=== PATIENT | female | born 1995 | race Hispanic/Latino ===

== ENCOUNTER 2018-12-20 13:35 | Outpatient (CLI) | payer OTHER ==
[~2018-12-20 13:35] MED LIST: Iopamidol 370 76% 100 ML VIAL ONE
--- NOTE | 2018-12-20 14:56 | CT ---
EXAM: CT Pelvis W Con PROVIDED CLINICAL HISTORY: Right lower extremity enlargement/leg swelling for many years. COMPARISON: None FINDINGS: Imaging was obtained from the level of the L4 vertebral body to the proximal diaphysis of the femurs. The most distal infrarenal abdominal aorta as well as the iliac arteries and bilateral common femoral arteries are patent. The visualized portions of the IVC as well as each common iliac vein and internal and external iliac veins are patent. Common femoral veins are patent and symmetric in appear ance bilaterally. No filling defects are seen within the iliac veins on this exam. No external compression of the veins is appreciated on this exam. The urinary bladder, uterus, and adnexal structures have a normal CT appearance. There is no evidence of a pelvic mass or lymphadenopathy. No free fluid or fluid collection is identi fied. No enlarged lymph nodes or mass is seen in either inguinal region. There is no subcutaneous soft tiss ue swelling involving the imaged portion of the proximal thighs bilaterally. IMPRESSION: Normal CT scan of the pelvis. The iliac veins are patent. No pelvic mass or lymphadenopathy is seen. No edema is seen in the subcutaneous soft tissues of the imaged proximal right lower extremity.
== END 2018-12-20 13:36 | disposition home or self-care (01) ==
LOC: CT 13:35
PROVIDERS: ATTEND Internal Medicine Cardiovascular Disease
DX: M79.89 Other specified soft tissue disorders (principal)
CPT/HCPCS: 72193; Q9967

== ENCOUNTER 2019-04-11 11:59 | Emergency (ER) | payer BC ==
[2019-04-11 12:45] LABS: #Basophils 0.1 thou/uL (0.0-0.2); #Eosinphils 0.2 thou/uL (0.0-0.7); #Lymphocytes 3.3 thou/uL (1.20-3.40); #Monocytes 0.6 thou/uL (0.11-0.59); #Neutrophils 4.3 thou/uL (1.40-6.50); %Basophils 1.2 % (0.0-1.0); %Eosinophils 2.6 % (0.0-10.0); %Lymphocytes 38.7 % (21.0-51.0); %Monocytes 6.7 % (0.0-10.0); %Neutrophils 50.7 % (42.0-75.0); Hemoglobin 13.2 g/dL (12.0-16.0); Mean Corpuscular HGB CONC 33.3 g/dL (32.0-36.0); Mean Corpuscular Hemoglobin 30.1 pg (27.0-31.0); Mean Corpuscular Volume 90.4 fL (78.0-98.0); Mean Platelet Volume 10.3 fL (7.4-10.4); Platelet Count 189 thou/uL (130-400); RBC Distribution Width 12.6 % (11.5-14.5); Red Blood Cell (RBC) Count 4.38 mill/uL (4.20-5.40); White Blood Cell (WBC) Count 8.5 thou/uL (4.8-10.8)
[2019-04-11 12:55] LABS: BHCG - Serum Negative (NEGATIVE); Pregs Control Background? CLEAR/WHITE (CLR/WHITE); Pregs Control Bar Appear? YES (CONTROL BAR)
[2019-04-11 13:07] LABS: ALT (SGPT) 11 U/L (8-55); AST (SGOT) 14 U/L (5-34); Albumin 4.4 g/dL (3.5-5.0); Alkaline Phosphatase 57 U/L (40-110); Anion Gap 12 mmol/L (10-20); BUN (Urea Nitrogen) 9 mg/dL (7.0-18.7); Bilirubin, Total 0.7 mg/dL (0.2-1.2); Calc. Creatinine Clearance 0 mL/min (70-130); Calcium 9.7 mg/dL (7.8-10.44); Carbon Dioxide 24 mmol/L (22-29); Chloride 108 mmol/L (98-107); Estimated GFR-MDRD Greater than 90; Globulin 3.4 g/dL (2.4-3.5); Glucose 94 mg/dL (70-105); Potassium 3.9 mmol/L (3.5-5.1); Protein, Total 7.8 g/dL (6.0-8.3); Sodium 140 mmol/L (136-145)
--- NOTE | 2019-04-11 13:08 | CT ---
CT HEAD WITHOUT IV CONTRAST COMPARISON: None HISTORY: Unresponsive. Short bursts of seizure like activity. TECHNIQUE: Axial CT imaging at 5 mm intervals from vertex through skull base without contrast FINDINGS: There is no evidence of an acute infarction, hemorrhage, mass effect, or midline shift. The ventricul ar system is normal in size, shape, and position. There is scattered mucosal thickening throughout the ethmoidal air cells with mucosal thickening in t he left sphenoid sinus. The mastoid air cells are clear. Osseous structures appear intact. IMPRESSION: 1. No acute intracranial abnormality demonstrated. 2. Sinus disease.
[2019-04-11 13:15] LABS: Acetaminophen Less than 6.0 mcg/mL (10.0-30.0); Alcohol Less than 10 mg/dL (Less than 10); Salicylate Less than 8.0 mg/dL (15.0-30.0)
[2019-04-11 14:04] LABS: Bilirubin Negative (Negative); Blood, Urine Negative (Negative); Glucose, Urine (Dipstick) Negative (Negative); Leukocyte Moderate (Negative); Nitrite Negative (Negative); Protein, Urine (Dipstick) Negative (Neg-Trace); Urobilinogen 0.2 mg/dL (Less than 2)
[2019-04-11 14:11] LABS: Amphetamine Not Detected (NotDetected); Barbiturates Screen Not Detected (NotDetected); Benzodiazepine Screen Detected (NotDetected); Cocaine Metabolite Screen Not Detected (NotDetected); Medtox Control Line Valid? VALID (VALID); Medtox Reader # READER 4; Methadone Not Detected (NotDetected); Methamphetamine Not Detected (NotDetected); Opiate Screen Not Detected (NotDetected); Oxycodone Screen Not Detected (NotDetected); Phencyclidine (PCP) Not Detected (NotDetected); THC/Cannabinoid Screen Not Detected (NotDetected); Tricyclic Screen Not Detected (NotDetected)
[2019-04-11 14:18] LABS: Clarity Hazy (Clear)
[2019-04-11 14:19] LABS: Bacteria/HPF 1+ HPF (None Seen); RBC/HPF 0-3 HPF (0-3); Squamous Epithelial 0-3 HPF (0-3)
== END 2019-04-11 16:22 | disposition home or self-care (01) ==
LOC: ERS 11:59
DX: R56.9 Unspecified convulsions (principal); F41.0 Panic disorder [episodic paroxysmal anxiety]
CPT/HCPCS: 70450; 80053; 80306; 80307; 81003; 81015; 84146; 84703; 85025; 93005

== ENCOUNTER 2019-04-19 11:24 | Emergency (ER) | payer BC ==
[2019-04-19 13:11] LABS: #Basophils 0.1 thou/uL (0.0-0.2); #Eosinphils 0.2 thou/uL (0.0-0.7); #Lymphocytes 2.2 thou/uL (1.20-3.40); #Monocytes 0.5 thou/uL (0.11-0.59); #Neutrophils 3.3 thou/uL (1.40-6.50); %Basophils 1.4 % (0.0-1.0); %Eosinophils 2.7 % (0.0-10.0); %Lymphocytes 35.3 % (21.0-51.0); %Monocytes 8.1 % (0.0-10.0); %Neutrophils 52.5 % (42.0-75.0); Hemoglobin 12.5 g/dL (12.0-16.0); Mean Corpuscular Hemoglobin 29.6 pg (27.0-31.0); Mean Corpuscular Volume 89.7 fL (78.0-98.0); Mean Platelet Volume 10.6 fL (7.4-10.4); Platelet Count 174 thou/uL (130-400); RBC Distribution Width 12.5 % (11.5-14.5); Red Blood Cell (RBC) Count 4.24 mill/uL (4.20-5.40); White Blood Cell (WBC) Count 6.2 thou/uL (4.8-10.8)
[2019-04-19 13:34] LABS: ALT (SGPT) 9 U/L (8-55); AST (SGOT) 12 U/L (5-34); Albumin 4.3 g/dL (3.5-5.0); Alkaline Phosphatase 63 U/L (40-110); Anion Gap 12 mmol/L (10-20); BUN (Urea Nitrogen) 12 mg/dL (7.0-18.7); Bilirubin, Total 0.5 mg/dL (0.2-1.2); Calc. Creatinine Clearance 0 mL/min (70-130); Calcium 9.5 mg/dL (7.8-10.44); Carbon Dioxide 24 mmol/L (22-29); Chloride 106 mmol/L (98-107); Estimated GFR-MDRD Greater than 90; Globulin 3.2 g/dL (2.4-3.5); Glucose 92 mg/dL (70-105); Potassium 3.7 mmol/L (3.5-5.1); Protein, Total 7.5 g/dL (6.0-8.3); Sodium 138 mmol/L (136-145)
[2019-04-19] MEDS ORDERED: levETIRAcetam 500 MG TAB PO SCH (13:45)
== END 2019-04-19 14:29 | disposition home or self-care (01) ==
LOC: ERS 11:24
DX: R42 Dizziness and giddiness (principal); R11.0 Nausea
CPT/HCPCS: 36415; 80053; 85025; 99284

== ENCOUNTER 2019-05-30 12:39 | Outpatient (CLI) | payer BC ==
--- NOTE | 2019-05-30 14:54 | MRI ---
BRAIN MRI WITHOUT CONTRAST: DATE: 05/30/2019. COMPARISON: None. 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 TECHNIQUE: Multiplanar, multisequence MR imaging of the brain obtained without contrast. FINDINGS: The diffusion weighted imaging demonstrates no evidence for acute infarction. The axial gradient ech o imaging demonstrates no evidence for intracranial hemorrhage. There is mild mucosal thickening involving the frontal sinuses, the anterior ethmoid air cells bilate rally, and the maxillary sinuses. Arterial flow voids at the axial level of the skull base appear grossly unremarkable on the T2 weight ed imaging. There are multiple scattered subcentimeter foci of increased T2 and FLAIR signal within the subcortic al and deep white matter of bilateral frontal lobes, right more numerous than left. There is a focal area of increased T2 and FLAIR signal within the periventricular white matter near the superior lily in of the temporal horn of the left lateral ventricle. The arterial flow voids at the axial level of the skull base appear grossly unremarkable on the T2 we ighted imaging. Regional bone marrow signal intensity appears within normal limits. The thin section coronal gradient echo imaging demonstrates normal symmetric structure and signal int ensity of the hippocampi. IMPRESSION: There are foci of increased T2 and FLAIR signal within the white matter including the deep and subcor tical white matter of bilateral frontal lobes, right greater than left, as well as in the periventric ular white matter adjacent to the temporal horn of the left lateral ventricle. Perhaps postcontrast imaging would be beneficial to exclude any evidence for enhancement. The hippocampi appear grossly u nremarkable. These findings suggest a nonspecific process which could be on the basis of demyelinati ng disease/multiple sclerosis, lupus, Lyme disease, vasculitis, etc. POS: [facility]
== END 2019-05-30 12:40 | disposition home or self-care (01) ==
LOC: SCSMRI 12:39
PROVIDERS: ATTEND Psychiatry & Neurology Neurology
DX: G40.209 Localization-related (focal) (partial) symptomatic epilepsy and epileptic syndromes with complex partial seizures, not intractable, without status epilepticus (principal); R93.89 Abnormal findings on diagnostic imaging of other specified body structures
CPT/HCPCS: 70551

== ENCOUNTER 2019-09-19 12:37 | Outpatient (CLI) | payer BC ==
--- NOTE | 2019-09-20 17:17 | EEG ---
DATE OF SERVICE: DESCRIPTION OF THE RECORD: The waking background is 9 hertz occipitally dominant alpha frequency. The patient became drowsy, but no sleep was seen. Hyperventilation and photic stimulation were unremarkable. There were frequent phase reversing sharp transients noted in the left parasagittal region. IMPRESSION: This is an abnormal study for the findings of phase reversing transients in the left parasagittal regions suggesting a possible seizure focus. Job ID: [id number]
== END 2019-09-19 12:38 | disposition home or self-care (01) ==
LOC: EEG 12:37
PROVIDERS: ATTEND Psychiatry & Neurology Neurology
DX: G40.209 Localization-related (focal) (partial) symptomatic epilepsy and epileptic syndromes with complex partial seizures, not intractable, without status epilepticus (principal); R94.01 Abnormal electroencephalogram [EEG]
CPT/HCPCS: 95816

== ENCOUNTER 2019-10-07 19:14 | Emergency (ER) | payer BC ==
[2019-10-07 19:35] LABS: #Basophils 0.1 thou/uL (0.0-0.2); #Eosinphils 0.2 thou/uL (0.0-0.7); #Lymphocytes 2.3 thou/uL (1.20-3.40); #Monocytes 0.6 thou/uL (0.11-0.59); #Neutrophils 2.6 thou/uL (1.40-6.50); %Basophils 1.9 % (0.0-1.0); %Eosinophils 4.3 % (0.0-10.0); %Lymphocytes 38.9 % (21.0-51.0); %Neutrophils 44.9 % (42.0-75.0); Hemoglobin 13.4 g/dL (12.0-16.0); Mean Corpuscular HGB CONC 33.1 g/dL (32.0-36.0); Mean Corpuscular Hemoglobin 30.1 pg (27.0-31.0); Mean Corpuscular Volume 90.9 fL (78.0-98.0); Mean Platelet Volume 10.3 fL (7.4-10.4); Platelet Count 180 thou/uL (130-400); RBC Distribution Width 12.3 % (11.5-14.5); Red Blood Cell (RBC) Count 4.45 mill/uL (4.20-5.40); White Blood Cell (WBC) Count 5.8 thou/uL (4.8-10.8)
[2019-10-07 19:42] LABS: BHCG - Serum Negative (NEGATIVE); Pregs Control Background? CLEAR/WHITE (CLR/WHITE); Pregs Control Bar Appear? YES (CONTROL BAR)
[2019-10-07 19:55] LABS: ALT (SGPT) 11 U/L (8-55); AST (SGOT) 14 U/L (5-34); Albumin 4.5 g/dL (3.5-5.0); Alkaline Phosphatase 88 U/L (40-110); Anion Gap 15 mmol/L (10-20); BUN (Urea Nitrogen) 18 mg/dL (7.0-18.7); Bilirubin, Total 0.3 mg/dL (0.2-1.2); Calc. Creatinine Clearance 0 mL/min (70-130); Calcium 9.9 mg/dL (7.8-10.44); Carbon Dioxide 24 mmol/L (22-29); Chloride 104 mmol/L (98-107); Estimated GFR-MDRD 78; Globulin 3.7 g/dL (2.4-3.5); Glucose 98 mg/dL (70-105); Potassium 4.1 mmol/L (3.5-5.1); Protein, Total 8.2 g/dL (6.0-8.3); Sodium 139 mmol/L (136-145)
[2019-10-07 19:59] LABS: Carbamazepine-Tegretol 4.9 ug/mL (4.0-12.0)
== END 2019-10-07 21:04 | disposition home or self-care (01) ==
LOC: ERS 19:14
DX: R56.9 Unspecified convulsions (principal); F41.0 Panic disorder [episodic paroxysmal anxiety]; Z79.899 Other long term (current) drug therapy
CPT/HCPCS: 36415; 80053; 80156; 84146; 84703; 85025; 99284

== ENCOUNTER 2019-10-17 07:48 | Outpatient (CLI) | payer BC ==
--- NOTE | 2019-10-17 09:30 | MRI ---
MRI BRAIN WITH AND WITHOUT CONTRAST: DATE: 10/17/2019 HISTORY: 24-year-old female ICD-10: "G 40.209, localization-related (focal) (partial) symptomatic epilepsy and epileptic syndromes with complex partial seizures, not intractable, without status epilepticus" COMPARISON: 04/11/2019 TECHNIQUE: Multiplanar, multisequence MRI of the brain performed pre- and post-IV injection of gadolinium based contrast agent. Additional Complex partial seizure protocol sequences with thin slice coronal flash 2-D gradient echo, thin slice coronal T1 MP rage, and FLAIR coronal.. FINDINGS: There is no abnormal intra-axial enhancement. Ventricles are normal in size and configuration. Corpus callosum is fully formed and normal. Again noted are the multiple scattered foci of signal abnormality (hyperintensity on T2 WI and FLAIR) in the bilateral cerebral white matter, as previously described. Differential diagnosis was given previously. These white matter lesions do not involve the corpus callosum or brachium pontis. There has been no interval change overall. Most are less than 1 cm in size. The largest is approximately 1 cm or larger at the medial aspect of left temporal lobe (but not involving hippocampus). No restricted diffusion. No evidence of recent or remote hemorr helen. No mass effect, midline shift, or extra-axial fluid collection. IMPRESSION: No interval change in the multiple focal bilateral cerebral white matter lesions. No enhancement.
== END 2019-10-17 07:49 | disposition home or self-care (01) ==
LOC: SCSMRI 07:48
PROVIDERS: ATTEND Psychiatry & Neurology Neurology
DX: G40.209 Localization-related (focal) (partial) symptomatic epilepsy and epileptic syndromes with complex partial seizures, not intractable, without status epilepticus (principal); G93.89 Other specified disorders of brain
CPT/HCPCS: 70553